=== PATIENT | male | born 1980 | race African-American/Black ===

== ENCOUNTER 2017-09-06 07:40 | Emergency (ER) | payer BC, OTHER ==
[2017-09-06 08:21] VITALS: BP 143/83
--- NOTE | 2017-09-06 08:38 | UC ---
Throat Pain/Nasal Perez HPI - HPI Summary HPI Summary: 2 DAYS OF SORE THROAT, PAIN WITH SWALLOWING AND NONPRODUCTIVE COUGH. TODAY HIS VOICE IS HOARSE. NO CONGESTION, EAR PAIN, NAUSEA/VOMITING. NO FEVER. - History of Current Complaint Chief Complaint: UCGeneralIllness Stated Complaint: SORE THROAT,COUGH Time Seen by Provider: 09/06/17 08:14 Hx Obtained From: Patient Onset/Duration: Gradual Onset, Lasting Days, Still Present Severity: Moderate Pain Intensity: 10 - STATES 10/10 BUT IN NO ACUTE DISTRESS Pain Scale Used: 0-10 Numeric Cough: Nonproductive Associated Signs & Symptoms: Negative: Wheezing, Fever - Allergies/Home Medications Allergies/Adverse Reactions: Allergies Allergy/AdvReac Type Severity Reaction Status Date / Time No Known Allergies Allergy Verified 09/06/17 08:21 Home Medications: Home Medications NK [No Home Medications Reported] 09/06/17 [History Confirmed 09/06/17] PMH/Surg Hx/FS Hx/Imm Hx Previously Healthy: Yes - Surgical History Surgical History: None - Family History Known Family History: Positive: Hypertension - Social History Alcohol Use: None Substance Use Type: None Smoking Status (MU): Never Smoked Tobacco Review of Systems Constitutional: Negative ENT: Sore Throat Respiratory: Cough Cardiovascular: Negative Gastrointestinal: Negative All Other Systems Reviewed And Are Negative: Yes Physical Exam Triage Information Reviewed: Yes Appearance: Well-Appearing, No Pain Distress, Well-Nourished Vital Signs: Initial Vital Signs Temp 97.5 F 09/06/17 08:09 Pulse 70 09/06/17 08:09 Resp 17 09/06/17 08:09 BP 143/83 09/06/17 08:09 Pulse Ox 100 09/06/17 08:09 Vital Signs Reviewed: Yes Eyes: Positive: Conjunctiva Clear ENT: Positive: Hearing grossly normal, Pharyngeal erythema, Hoarse voice. Negative: Tonsillar swelling, Tonsillar exudate Neck: Positive: Supple, Nontender, No Lymphadenopathy Respiratory Exam: Normal Cardiovascular Exam: Normal Abdomen Description: Positive: Soft Musculoskeletal: Positive: No Edema Neurological: Positive: Alert Psychological: Positive: Age Appropriate Behavior Skin: Negative: rashes Diagnostics - Laboratory Diagnostic Studies Completed/Ordered: STREP NEG Throat Pain/Nasal Course/Dx - Differential Dx/Diagnosis Provider Diagnoses: ACUTE PHARYNGITIS Discharge - Sign-Out/Discharge Documenting (check all that apply): Discharge/Admit/Transfer - Discharge Plan Condition: Stable Disposition: HOME Patient Education Materials: Pharyngitis (ED) Forms: *Work Release Referrals: No Primary Care Phys,NOPCP [Primary Care Provider] - Additional Instructions: STREP TEST NEGATIVE. YOUR SYMPTOMS ARE LIKELY VIRALLY MEDIATED AND SHOULD RESOLVE ON THEIR OWN WITH TIME. NO INDICATION FOR ANTIBIOTICS AT PRESENT. REST, HYDRATE, OTC MEDS NEEDED. SEEK FOLLOW-UP IF YOU ARE NOT IMPROVING OVER THE NEXT 1-2 WEEKS. IF YOU DEVELOP NASAL CONGESTION USE OTC AFRIN. 2 SPRAYS IN EACH NOSTRIL TWICE DAILY NEEDED. DO NOT USE FOR MORE THAN 3-4 DAYS IN A ROW TO PREVENT DEVELOPING REBOUND CONGESTION. CALL THE NUMBER BELOW FOR ASSISTANCE IN ESTABLISHING WITH A PCP An additional resource available to assist in finding the appropriate physician for your health care needs is [facility] ([facility]). You may contact them by calling [phone]. - Billing Disposition and Condition Condition: STABLE Disposition: HOME
== END 2017-09-06 09:16 | disposition home or self-care (01) ==
LOC: UCCORT 07:40
DX: J02.9 Acute pharyngitis, unspecified (principal)
CPT/HCPCS: 87651; 99201; G0463

== ENCOUNTER 2019-02-20 10:20 | Emergency (ER) | payer BC, OTHER ==
[2019-02-20 10:50] VITALS: BP 130/67
[2019-02-20] MEDS ORDERED: Ibuprofen TAB* 600 MG PO ONE (11:02)
--- NOTE | 2019-02-20 11:07 | UC ---
Lower Extremity/Ankle HPI - HPI Summary HPI Summary: 38 yo male slipped and fell last PM at work c/o left ankle >left hip pain able to bear wt - History of Current Complaint Chief Complaint: UCLowerExtremity Stated Complaint: L ANKLE INJ Time Seen by Provider: 02/20/19 10:51 Hx Obtained From: Patient Onset/Duration: Sudden Onset, Lasting Hours Severity Initially: Severe Severity Currently: Severe Pain Intensity: 10 Pain Scale Used: 0-10 Numeric Aggravating Factor(s): Standing, Ambulation Alleviating Factor(s): Rest Able to Bear Weight: Yes - Allergies/Home Medications Allergies/Adverse Reactions: Allergies Allergy/AdvReac Type Severity Reaction Status Date / Time No Known Allergies Allergy Verified 02/20/19 10:39 Home Medications: Home Medications Ibuprofen TAB* [Advil TAB*] 200 mg PO Q6H PRN 02/20/19 [History Confirmed ] PMH/Surg Hx/FS Hx/Imm Hx Previously Healthy: Yes - Surgical History Surgical History: None - Family History Known Family History: Positive: Hypertension - Social History Alcohol Use: None Substance Use Type: None Smoking Status (MU): Never Smoked Tobacco Review of Systems All Other Systems Reviewed And Are Negative: Yes Constitutional: Positive: Negative Skin: Positive: Negative Eyes: Positive: Negative ENT: Positive: Negative Respiratory: Positive: Negative Cardiovascular: Positive: Negative Gastrointestinal: Positive: Negative Genitourinary: Positive: Negative Motor: Positive: Negative Neurovascular: Positive: Negative Musculoskeletal: Positive: Arthralgia - left ankle and hip Neurological: Positive: Negative Psychological: Positive: Negative Physical Exam Triage Information Reviewed: Yes Appearance: Well-Appearing, No Pain Distress, Well-Nourished Vital Signs: Initial Vital Signs Temp 97.7 F 02/20/19 10:40 Pulse 78 02/20/19 10:40 Resp 17 02/20/19 10:40 BP 130/67 02/20/19 10:40 Pulse Ox 99 02/20/19 10:40 Vital Signs Reviewed: Yes Eyes: Positive: Conjunctiva Clear ENT: Positive: Hearing grossly normal. Negative: Nasal congestion, Nasal drainage, Trismus, Muffled voice, Hoarse voice Dental Exam: Normal Neck: Positive: Supple, Nontender, No Lymphadenopathy Respiratory: Positive: Lungs clear, Normal breath sounds, No respiratory distress Cardiovascular: Positive: RRR, No Murmur Bowel Sounds: Positive: Present Musculoskeletal: Positive: Other: - see image Neurological: Positive: Alert Psychological Exam: Normal Skin Exam: Normal Images Feet (Multiple View): 1 - tender/swollen Front/Back of Body, Lg (Kaufman): 1 - tender/great troch Diagnostics - Radiology No standard instances Radiology Interpretation Completed By: Radiologist Summary of Radiographic Findings: REPORT AND IMPRESSION: #. Negative for fracture, osteochondral lesion, or articular malalignment. Preserved joint spaces. #. Suggestion of small talocrural joint effusion. #. Mild soft tissue swelling over the lateral malleolus. left hip : neg Lower Extremity Course/Dx - Differential Dx/Diagnosis Provider Diagnosis: Contusion of left hip, Left ankle sprain Discharge ED - Sign-Out/Discharge Documenting (check all that apply): Patient Departure All imaging exams completed and their final reports reviewed: Yes - Discharge Plan Condition: Stable Disposition: HOME Prescriptions: Ibuprofen TAB* [Motrin TAB*] 600 mg PO QID PRN #40 tab PRN Reason: Pain Patient Education Materials: Ankle Sprain (ED), Contusion in Adults (ED) Forms: *Work Release Referrals: Caesar Bernabe MD [Medical Doctor] - 3 Days (recheck early next week) Additional Instructions: REPORT AND IMPRESSION: #. Negative for fracture, osteochondral lesion, or articular malalignment. Preserved joint spaces. #. Suggestion of small talocrural joint effusion. #. Mild soft tissue swelling over the lateral malleolus left hip XR : negative rest elevate ice cam boot crutches - Billing Disposition and Condition Condition: STABLE Disposition: Home
== END 2019-02-20 12:59 | disposition home or self-care (01) ==
LOC: UCCORT 10:20
DX: S70.02XA Contusion of left hip, initial encounter (principal); S93.402A Sprain of unspecified ligament of left ankle, initial encounter; W01.0XXA Fall on same level from slipping, tripping and stumbling without subsequent striking against object, initial encounter; Y92.9 Unspecified place or not applicable; Y99.0 Civilian activity done for income or pay
CPT/HCPCS: 99213; A9270-GY; G0463